=== PATIENT | female | born 1985 | race Caucasian/White ===

== ENCOUNTER 2017-03-15 20:30 | Emergency (ER) | payer BC, MEDICAID ==
[~2017-03-15] VITALS: Ht 165.1 cm; Wt 117.6 kg
[~2017-03-15 20:30] MED LIST: CEPH-443 PO; HYDR-3498 PO; IBUP-1542 PO; IBUP800T25 PO; PHEN-538 PO
[2017-03-15 20:37] VITALS: Ht 165.1 cm; Wt 117.6 kg
--- NOTE | 2017-03-15 21:50 | ERD ---
ER Documentation Chief Complaint Chief Complaint headache x 1 day HPI 31-year-old female presents emergency department for frontal headache that started yesterday. She also stated that she had this same headache before. She also stated that her headache started gradually with no specific time of onset. LMP: 02/15/2017. A0. Denies head injury, blurry vision, pain on eye movement, changes in vision, sensitivity to light, neck pain, neck stiffness, throat pain, difficulty swallowing, shoulder pain, chest pain, back pain, abdominal pain, nausea, vomiting, constipation, diarrhea, urinary symptoms, or possibility of being , loss of bowel bladder control, recent long travel, recent exposure to any illness, fever, chills, numbness or tingling sensation, difficulty walking. No known drug allergies. No past medical history. No surgeries. Does not take any prescription medication at home. No family history of heart attack or stroke before the age of 50. Social: Works as a nanny. Denies smoking, use of alcoholic beverages, use of illegal drugs. ROS All systems reviewed and are negative except as per history of present illness. Medications Home Meds Active Scripts Meclizine Hcl* (Antivert*) 12.5 Mg Tab, 25 MG PO Q6H Y for DIZZINESS, #20 TAB Prov:NADEGEABWILIANWILIAN Gray 03/15/17 Acetaminophen* (Tylophen*) 500 Mg Capsule, 1 CAP PO Q6H Y for PAIN AND OR ELEVATED TEMP, #20 CAP Prov:NADEGEABWILIANWILIAN Marina 03/15/17 Ibuprofen* (Motrin*) 800 Mg Tab, 800 MG PO Q8 Y for PAIN AND OR ELEVATED TEMP, # 30 TAB Prov:NADEGEABWILIANWILIAN Marina 03/15/17 Hydrocodone Bit-Acetaminophen* ([place]*) 5-325 Mg Tab, 1 TAB PO Q6 Y for PAIN, # 7 TAB Prov:ALEX ANTONY PA-C 02/13/15 Ibuprofen* (Ibuprofen*) 800 Mg Tablet, 800 MG PO Q6H Y for PAIN, #20 TAB Prov:ALEX ANTONY PA-C 02/13/15 Phenazopyridine Hcl* (Pyridium*) 200 Mg Tab, 200 MG PO TID Y for DYSURIA, #6 TAB Prov:MARLEN SAMUEL MD 12/26/14 Ibuprofen* (Motrin*) 600 Mg Tab, 600 MG PO Q6, #14 TAB Prov:MARLEN SAMUEL MD 12/26/14 Cephalexin* (Keflex*) 500 Mg Capsule, 500 MG PO QID for 5 Days, CAP Prov:MARLEN SAMUEL MD 12/26/14 Allergies Allergies: Coded Allergies: No Known Allergy (Unverified , 03/15/17) PMhx/Soc History of Surgery: No Anesthesia Reaction: No Hx Neurological Disorder: No Hx Respiratory Disorders: No Hx Cardiac Disorders: No Hx Psychiatric Problems: No Hx Miscellaneous Medical Probl: No Hx Alcohol Use: No Hx Substance Use: No Hx Tobacco Use: No Physical Exam Vitals Vital Signs Date Time Temp Pulse Resp B/P Pulse Ox O2 Delivery O2 Flow Rate FiO2 03/15/17 20:37 99.0 83 20 145/93 99 Physical Exam Const: [] Head: Atraumatic Eyes: Normal Conjunctiva. No pain on eye movement. ENT: Normal External Ears, Nose and Mouth. Neck: Full range of motion..~ No meningismus. No neck stiffness. No signs of meningeal irritation. Good and full full range of motion of the neck. No difficulty swallowing. Resp: Clear to auscultation bilaterally Cardio: Regular rate and rhythm, no murmurs Abd: Soft, non tender, non distended. Normal bowel sounds Skin: No petechiae or rashes Back: No midline or flank tenderness Ext: No cyanosis, or edema Neur: Awake and alert. Face is symmetrical. Cranial nerves II through XII intact. No unilateral deficits. No neurological deficits. Romberg test is negative. Psych: Normal Mood and Affect Results 24 hrs Laboratory Tests Test 03/15/17 22:30 Bedside Urine pH (LAB) 6.0 Bedside Urine Protein (LAB) Negative Bedside Urine Glucose (UA) Negative Bedside Urine Ketones (LAB) Negative Bedside Urine Blood 2+ Bedside Urine Nitrite (LAB) Negative Bedside Urine Leukocyte Esterase (L 1+ Current Medications Medications (Trade) Dose Ordered Sig/Miller Route PRN Reason Start Time Stop Time Status Last Admin Dose Admin Meclizine HCl (Antivert) 25 mg ONCE ONCE PO 03/15/17 23:00 03/15/17 23:01 DC 03/15/17 22:51 Acetaminophen/ Hydrocodone Bitart ([place] (5/325)) 1 tab ONCE ONCE PO 03/15/17 23:00 03/15/17 23:01 DC 03/15/17 22:51 Procedures/MDM 31-year-old female presents emergency department for frontal headache that started yesterday. She also stated that she had this same headache before. She also stated that her headache started gradually with no specific time of onset. LMP: 02/15/2017. A0. Denies head injury, blurry vision, pain on eye movement, changes in vision, sensitivity to light, neck pain, neck stiffness, throat pain, difficulty swallowing, shoulder pain, chest pain, back pain, abdominal pain, nausea, vomiting, constipation, diarrhea, urinary symptoms, or possibility of being , loss of bowel bladder control, recent long travel, recent exposure to any illness, fever, chills, numbness or tingling sensation, difficulty walking. No known drug allergies. No past medical history. No surgeries. Does not take any prescription medication at home. No family history of heart attack or stroke before the age of 50. Social: Works as a nanny. Denies smoking, use of alcoholic beverages, use of illegal drugs. Physical exam: Unremarkable. No pain in eye movement. No neck stiffness. No signs of meningeal irritation. Good and full full range of motion of the neck. No difficulty swallowing. Face is symmetrical. Cranial nerves II through XII intact. No unilateral deficits. No neurological deficits. Romberg test is negative. Disease process was explained to the patient. Patient agreed with the treatment , plan of care. Treatment: P.o. challenge. [place]. Antivert. POC urine : Negative. POC urine dipstick: Reviewed. Reevaluation: Unremarkable. Denies headache, dizziness, blurred vision, neck pain, shoulder pain, chest pain, back pain, abdominal pain, nausea, vomiting. No pain in eye movement. No neck stiffness. No signs of meningeal irritation. Good and full full range of motion of the neck. No difficulty swallowing. Face is symmetrical. Cranial nerves II through XII intact. No unilateral deficits. No neurological deficits. Romberg test is negative. There is no right upper/right lower/epigastric/left upper/left lower abdominal tenderness and likely palpation. Ambulatory with steady gait and without difficulty and without abdominal pain. No neurovascular deficits. Differential diagnosis: Stroke versus subarachnoid hemorrhage versus cluster headache versus temporal arteritis versus migraine versus sinus headache versus headache versus viral syndrome Case was discussed with supervising emergency room physician, Dr. Hans Rojo who agreed with my medica decision making. Final diagnosis: Headache, viral syndrome Prescription: Motrin. Antivert. Follow-up with PCP in the next 24-48 hours. Come back here in emergency department for any new symptoms or any worsening symptoms. All questions and concerns are answered. Patient verbalized understanding and agreed with the plan of care. Hemodynamically stable on discharge. Departure Diagnosis: Primary Impression: Headache Condition: Stable Additional Instructions: Follow-up with PCP in the next 24-48 hours. Come back here in emergency department for any new symptoms or any worsening symptoms. All questions and concerns are answered. Patient verbalized understanding and agreed with the plan of care. NIKHIL TREADWELL Mar 15, 2017 21:50
[2017-03-15 22:31] LABS: URINE BLOOD (Dip) POC 2+ (NEGATIVE)
[2017-03-15] MEDS ORDERED: IBUP800T25 PO (22:46)
[2017-03-15] MEDS ORDERED: MECL12.574 PO (22:46)
[2017-03-15] MEDS ORDERED: ACET500C5 PO (22:46)
[2017-03-15] MEDS ORDERED: MECLIZINE 12.5 MG TAB PO ONE (23:00)
[2017-03-15] MEDS ORDERED: HYDROCODONE/APAP (5/325) TAB PO ONE (23:00)
== END 2017-03-15 22:57 | disposition home or self-care (01) ==
LOC: FTE 20:30
DX: R51 Headache (principal)
CPT/HCPCS: 81003; Z7610; 99283

== ENCOUNTER 2018-02-10 02:02 | Emergency (ER) | END 2018-02-10 04:36 | disposition home or self-care (01) ==

== ENCOUNTER 2018-08-06 08:59 | Emergency (ER) | payer BC ==
[~2018-08-06] VITALS: Ht 167.6 cm; Wt 122.0 kg
[~2018-08-06 08:59] MED LIST changes: +ACET500C5 PO; +IBUP-1544 PO; -IBUP800T25 PO; +IBUP800T48 PO; +MECL12.574 PO; +RANI150T35 PO; +SUCR1TAB56 PO
[2018-08-06 09:04] VITALS: BP 131/70; PULSE 74; RESP 17; Ht 167.6 cm; Wt 122.0 kg
--- NOTE | 2018-08-06 09:23 | ERD ---
ER Documentation Chief Complaint Chief Complaint SEVER HEADACHE ; LEFT FACIAL NUMBNESS STARTED 8 AM YESTERDAY GOT WORSE HPI 32-year-old female presents the emergency department complaining of a headache and facial tingling. Patient states that she had some sort of emotional type reaction at [employer] beginning yesterday. She has had headaches chronically and her headache today is not significantly worse or different than her previous headaches. She reports no thunderclap headache, focal weakness or numbness. The triage note indicates that she has left facial numbness, but she is describing tingling all over her face. She denies any other focal weakness or numbness. ROS All systems reviewed and are negative except as per history of present illness. Medications Home Meds Active Scripts Ranitidine Hcl* (Zantac*) 150 Mg Tablet, 150 MG PO BID PRN for EPIGASTRIC PAIN, #30 TAB Prov:CONSUELO GARCIA 02/10/18 Sucralfate* (Carafate*) 1 Gm Tab, 1 GM PO QID, #30 TAB Prov:CONSUELO GARCIA 02/10/18 Meclizine Hcl* (Antivert*) 12.5 Mg Tab, 25 MG PO Q6H PRN for DIZZINESS, #20 TAB Prov:NIKHIL TREADWELL 03/15/17 Acetaminophen* (Tylophen*) 500 Mg Capsule, 1 CAP PO Q6H PRN for PAIN AND OR ELEVATED TEMP, #20 CAP Prov:NIKHIL TREADWELL 03/15/17 Ibuprofen* (Motrin*) 800 Mg Tab, 800 MG PO Q8 PRN for PAIN AND OR ELEVATED TEMP, #30 TAB Prov:NIKHIL TREADWELL 03/15/17 Hydrocodone Bit-Acetaminophen* ([place]*) 5-325 Mg Tab, 1 TAB PO Q6 PRN for PAIN, #7 TAB Prov:ALEX ANTONY PA-C 02/13/15 Ibuprofen* (Ibuprofen*) 800 Mg Tablet, 800 MG PO Q6H PRN for PAIN, #20 TAB Prov:ALEX ANTONY PA-C 02/13/15 Phenazopyridine Hcl* (Pyridium*) 200 Mg Tab, 200 MG PO TID PRN for DYSURIA, #6 TAB Prov:MARLEN SAMUEL MD 12/26/14 Ibuprofen* (Motrin*) 600 Mg Tab, 600 MG PO Q6, #14 TAB Prov:MARLEN SAMUEL MD 12/26/14 Cephalexin* (Keflex*) 500 Mg Capsule, 500 MG PO QID for 5 Days, CAP Prov:MARLEN SAMUEL MD 12/26/14 Allergies Allergies: Coded Allergies: No Known Allergy (Unverified , 02/10/18) PMhx/Soc History of Surgery: No Anesthesia Reaction: No Hx Neurological Disorder: Yes (HEADACHES HAD CT 7 YRS AGO) Hx Respiratory Disorders: No Hx Cardiac Disorders: Yes (HTN, HYPERLIPIDEMIA) Hx Psychiatric Problems: No Hx Miscellaneous Medical Probl: No Hx Alcohol Use: No Hx Substance Use: No Hx Tobacco Use: No Smoking Status: Never smoker Physical Exam Vitals Vital Signs Date Temp Pulse Resp B/P (MAP) Pulse Ox O2 O2 Flow FiO2 Time Delivery Rate 08/06/18 98.3 74 17 131/70 99 09:04 (90) Physical Exam GENERAL: The patient is well developed and appropriate for usual state of health in no apparent distress HEENT: Pupils equal, round, and reactive to light. EOMI. There is no scleral icterus. NECK: C-spine is soft and supple, there is no meningismus. There is no cervical lymphadenopathy. LUNGS: Clear to auscultation bilaterally. There are no rales, wheezes or rhonchi. HEART: Regular rate and rhythm, no murmurs, clicks, rubs or gallops. ABDOMEN: Soft, non-tender, non-distended. There are bowel sounds in all four quadrants. No rebound or guarding. EXTREMITIES: There is no peripheral cyanosis or edema. No focal swelling or erythema. NEURO: The patient moves all four extremities with 5/5 strength. Cranial nerves II - XII are intact. Normal gait. Alert and oriented. Sensation is normal throughout all extremities as well as both sides of the face. SKIN: There is no apparent rash or petechiae. HEME/LYMPHATIC: There is no evidence of excessive bruising or lymphedema. PSYCHIATRIC: The patient does not appear anxious or depressed. Procedures/MDM Patient was taken to a room, seen and examined Medical decision makin-year-old female presents with what appears to be a functional headache. She has no neurologic symptoms whatsoever and I have no concerns for stroke, subarachnoid hemorrhage or other concerns. Overall, she appears to be completely nontoxic after reassurance and seems appropriate for discharge. Departure Diagnosis: Primary Impression: Numbness Condition: Stable Patient Instructions: Understanding Headache Pain, Paraesthesias Additional Instructions: Please see your doctor if not improved in the next 2-3 days. THOMAS CAIN Aug 06, 2018 09:23
== END 2018-08-06 09:40 | disposition home or self-care (01) ==
LOC: E/R 08:59
DX: R20.0 Anesthesia of skin (principal); I10 Essential (primary) hypertension; R40.2142 Coma scale, eyes open, spontaneous, at arrival to emergency department; R40.2252 Coma scale, best verbal response, oriented, at arrival to emergency department; R40.2362 Coma scale, best motor response, obeys commands, at arrival to emergency department
CPT/HCPCS: 99282

== ENCOUNTER 2018-09-23 12:16 | Emergency (ER) | payer BC ==
[~2018-09-23] VITALS: Wt 125.2 kg
[2018-09-23] MEDS ORDERED: SOD CHLORIDE 0.9% 500 ML IV STA (12:27)
--- NOTE | 2018-09-23 12:36 | ERD ---
ER Documentation Chief Complaint Chief Complaint ABD PAIN, VOMITING, ONSET 1 DAY, NO DIARRHEA, HX OF GASTRIC ULCER HPI 32-year-old female with a history of gastritis presenting with epigastric abdominal pain that started last night. The pain is burning, constant, radiating to her left upper quadrant and to her mid back. No alleviating factors. Exacerbated by eating and deep inspiration. Patient does have a history of gastritis but is not on any medications for this. She has never had an endoscopy. She did have 2 episodes of vomiting today that was nonbilious with small amounts of blood, but vomitus was mostly yellow. She denies any melena or hematochezia. Last bowel movement was yesterday and was normal. No associated fevers or chills. No chest pain or shortness of breath. Denies belching. Denies eating any spicy food. No NSAID use. ROS All systems reviewed and are negative except as per history of present illness. Medications Home Meds Active Scripts Sucralfate* (Carafate*) 1 Gm Tab, 1 GM PO AC MEALS AND BEDTIME, #30 TAB Prov:CHRISTINE BORREGO MD 09/23/18 Metoclopramide* (Reglan*) 10 Mg Tablet, 10 MG PO Q6 PRN for NAUSEA AND/OR VOMITING, #10 TAB Prov:CHRISTINE BORREGO MD 09/23/18 Omeprazole* (Omeprazole*) 40 Mg Capsule.dr, 40 MG PO DAILY, #30 CAP Prov:CHRISTINE BORREGO MD 09/23/18 Ranitidine Hcl* (Zantac*) 150 Mg Tablet, 150 MG PO BID PRN for EPIGASTRIC PAIN, #30 TAB Prov:CONSUELO GARCIA 02/10/18 Sucralfate* (Carafate*) 1 Gm Tab, 1 GM PO QID, #30 TAB Prov:CONSUELO GARCIA 02/10/18 Meclizine Hcl* (Antivert*) 12.5 Mg Tab, 25 MG PO Q6H PRN for DIZZINESS, #20 TAB Prov:NIKHIL TREADWELL 03/15/17 Acetaminophen* (Tylophen*) 500 Mg Capsule, 1 CAP PO Q6H PRN for PAIN AND OR ELEVATED TEMP, #20 CAP Prov:PASILANIKHIL VANCE F 03/15/17 Ibuprofen* (Motrin*) 800 Mg Tab, 800 MG PO Q8 PRN for PAIN AND OR ELEVATED TEMP, #30 TAB Prov:NIKHIL TREADWELL 03/15/17 Hydrocodone Bit-Acetaminophen* ([place]*) 5-325 Mg Tab, 1 TAB PO Q6 PRN for PAIN, #7 TAB Prov:ALEX ANTONY PA-C 02/13/15 Ibuprofen* (Ibuprofen*) 800 Mg Tablet, 800 MG PO Q6H PRN for PAIN, #20 TAB Prov:ALEX ANTONY PA-C 02/13/15 Phenazopyridine Hcl* (Pyridium*) 200 Mg Tab, 200 MG PO TID PRN for DYSURIA, #6 TAB Prov:MARLEN SAMUEL MD 12/26/14 Ibuprofen* (Motrin*) 600 Mg Tab, 600 MG PO Q6, #14 TAB Prov:MARLEN SAMUEL MD 12/26/14 Cephalexin* (Keflex*) 500 Mg Capsule, 500 MG PO QID for 5 Days, CAP Prov:MARLEN SAMUEL MD 12/26/14 Allergies Allergies: Coded Allergies: No Known Allergy (Unverified , 02/10/18) PMhx/Soc History of Surgery: No Anesthesia Reaction: No Hx Neurological Disorder: Yes (HEADACHES HAD CT 7 YRS AGO) Hx Respiratory Disorders: No Hx Cardiac Disorders: Yes (HTN, HYPERLIPIDEMIA) Hx Psychiatric Problems: No Hx Miscellaneous Medical Probl: No Hx Alcohol Use: No Hx Substance Use: No Hx Tobacco Use: No FmHx Family History: No diabetes Physical Exam Vitals Vital Signs Date Temp Pulse Resp B/P (MAP) Pulse Ox O2 O2 Flow FiO2 Time Delivery Rate 09/23/18 98.8 74 18 136/80 98 12:25 (98) Physical Exam Const: No acute distress, well-appearing, nontoxic Head: Atraumatic Eyes: Normal Conjunctiva ENT: Normal External Ears, Nose and Mouth. Neck: Full range of motion. No meningismus. Resp: Clear to auscultation bilaterally Cardio: Regular rate and rhythm, no murmurs Abd: Soft, minimal tenderness in the epigastric region, but distractible, non distended. Normal bowel sounds Skin: No petechiae or rashes Back: No midline or flank tenderness Ext: No cyanosis, or edema Neur: Awake and alert Psych: Normal Mood and Affect Result Diagram: 09/23/18 1247 09/23/18 1247 Results 24 hrs Laboratory Tests Test 09/23/18 12:47 09/23/18 12:56 White Blood Count 14.1 10^3/ul Red Blood Count 4.71 10^6/ul Hemoglobin 14.4 g/dl Hematocrit 42.2 % Mean Corpuscular Volume 89.6 fl Mean Corpuscular Hemoglobin 30.6 pg Mean Corpuscular Hemoglobin Concent 34.1 g/dl Red Cell Distribution Width 12.3 % Platelet Count 240 10^3/UL Mean Platelet Volume 11.5 fl Immature Granulocytes % 0.400 % Neutrophils % 78.7 % Lymphocytes % 15.7 % Monocytes % 4.5 % Eosinophils % 0.3 % Basophils % 0.4 % Nucleated Red Blood Cells % 0.0 /100WBC Immature Granulocytes # 0.060 10^3/ul Neutrophils # 11.1 10^3/ul Lymphocytes # 2.2 10^3/ul Monocytes # 0.6 10^3/ul Eosinophils # 0.0 10^3/ul Basophils # 0.1 10^3/ul Nucleated Red Blood Cells # 0.0 10^3/ul Prothrombin Time 12.8 Sec Prothrombin Time Ratio 1.0 INR International Normalized Ratio 0.95 Activated Partial Thromboplast Time 28.2 Sec Sodium Level 137 mmol/L Potassium Level 4.0 mmol/L Chloride Level 101 mmol/L Carbon Dioxide Level 28 mmol/L Anion Gap 8 Blood Urea Nitrogen 9 mg/dl Creatinine 0.63 mg/dl Est Glomerular Filtrat Rate mL/min > 60 mL/min Glucose Level 107 mg/dl Calcium Level 9.2 mg/dl Total Bilirubin 0.6 mg/dl Direct Bilirubin 0.00 mg/dl Indirect Bilirubin 0.6 mg/dl Aspartate Amino Transf (AST/SGOT) 37 IU/L Alanine Aminotransferase (ALT/SGPT) 33 IU/L Alkaline Phosphatase 74 IU/L Total Protein 8.4 g/dl Albumin 4.6 g/dl Globulin 3.80 g/dl Albumin/Globulin Ratio 1.21 Lipase 55 U/L POC Beta HCG, Qualitative NEGATIVE Current Medications Medications Dose Sig/Miller Start Time Status Last (Trade) Ordered Route PRN Stop Time Admin Dose Reason Admin Sodium 500 ml @ Q1H STAT 09/23/18 DC 09/23/18 Chloride 500 mls/hr IV 12:27 12:58 09/23/18 13:26 Famotidine 20 mg ONCE STAT 09/23/18 DC 09/23/18 (Pepcid Iv) IV 12:49 12:58 09/23/18 12:50 10 mg ONCE STAT 09/23/18 DC 09/23/18 Metoclopramid IV 12:49 12:58 e HCl 09/23/18 12:50 (Reglan) 40 ml ONCE STAT 09/23/18 DC 09/23/18 Miscellaneous PO 12:49 12:58 Medication 09/23/18 12:50 (Gi Cocktail (2)) Procedures/MDM EMERGENT LABS AND DIAGNOSTIC STUDIES: Lab Results above were reviewed and interpreted by me. CBC: Mild leukocytosis, likely stress response. No evidence of anemia or platelet abnormality CMP: No evidence of clinically significant electrolyte abnormality, acidosis, renal failure, hypoglycemia, liver disease, or biliary obstruction Lipase: no evidence of pancreatitis Urine : Negative Initial Nursing notes reviewed. Previous Medical Records requested via the Electronic Health Record. EMERGENCY DEPARTMENT COURSE / MEDICAL DECISION MAKING: Patient presents with epigastric pain with nausea and mild hematemesis. Vitals are unremarkable and she is afebrile. Differential includes but is not limited to biliary colic, biliary obstruction, acute cholecystitis, pancreatitis, hepatitis, gastritis, colitis. Doubt cardiac pathology, aortic dissection, ureterolithiasis, pyelonephritis, pneumonia, pneumothorax, or pulmonary embolism. Labs were ordered to evaluate for above and were remarkable for/ normal. Patient was treated with IV fluids, IV Pepcid, GI cocktail, and IV Reglan. There is no evidence of unstable GI bleeding. Patient is likely suffering from gastritis versus peptic ulcer disease. Patient will be discharged with PPI, antiemetics, and sucralfate. Advised to follow-up with her PCP to get a referral to gastroenterology for endoscopy. Return precautions were discussed. Patient able to tolerate fluids here by mouth and is stable for discharge. Patient's blood pressure was elevated (>120/80) but appears stable without evide nce of hypertensive emergency or urgency. The patient was counseled about the risks of hypertension and urged to pursue outpatient monitoring and therapy within a week with their primary care physician. Departure Diagnosis: Primary Impression: Gastritis Gastritis type: unspecified gastritis Chronicity: acute Gastritis bleeding: with bleeding Qualified Codes: K29.01 - Acute gastritis with bleeding Condition: Stable CHRISTINE BORREGO MD September 23, 2018 12:36
[2018-09-23] MEDS ORDERED: LIDOCAINE/MYLANTA 40 ML BTL PO STA (12:49)
[2018-09-23] MEDS ORDERED: FAMOTIDINE 20 MG INJ IV STA (12:49)
[2018-09-23] MEDS ORDERED: METOCLOPRAMIDE 10 MG INJ IV STA (12:49)
[2018-09-23] MEDS ORDERED: OMEP40CA6 PO (13:22)
[2018-09-23] MEDS ORDERED: SUCR1TAB56 PO (13:22)
[2018-09-23] MEDS ORDERED: METO10TA92 PO (13:22)
[2018-09-23 14:11] VITALS: BP 142/90; PULSE 76; RESP 18
== END 2018-09-23 14:20 | disposition home or self-care (01) ==
LOC: E/R 12:16
DX: K29.01 Acute gastritis with bleeding (principal); I10 Essential (primary) hypertension
CPT/HCPCS: 36415; 80053; 81025; 83690; 85025; 85610; 85730; 86850; 86900; 86901; 96374; 96375; 99284; J2765; J7040; Z7610